=== PATIENT | male | born 1940 | race Caucasian/White ===

== ENCOUNTER → 2016-09-10 | Outpatient (CLI) | payer MEDICARE ==
[~2016-09-10] MED LIST: ASPIRIN CHEWABL81 MG PO; DILTIAZEM 24HR180 M1 PO; FLOMAX0.4 MG PO; HYDRALAZINE HCL50 MG PO; LASIX80 MG PO; METOLAZONE5 MG PO; NORCO 5-325 TA1 EACH PO; PHENERGAN 25 MG25 M1 PO; TRADJENTA5 MG PO
== END ==
LOC: OPSV2 12:37
PROVIDERS: Anesthesiology
DX: Z01.812 Encounter for preprocedural laboratory examination (principal); N18.9 Chronic kidney disease, unspecified
CPT/HCPCS: 36415; 80048

== ENCOUNTER → 2016-09-14 | Day surgery (SDC) | payer MEDICARE | END | disposition home or self-care (01) | LOC: OR 07:27 | PROVIDERS: Surgery | PROC: B514YZA Fluoroscopy of Left Jugular Veins using Other Contrast, Guidance (ICD-10-PCS; 2016-09-14) | PROC: 05HN33Z Insertion of Infusion Device into Left Internal Jugular Vein, Percutaneous Approach (ICD-10-PCS; principal; 2016-09-14 09:45) | DX: I13.0 Hypertensive heart and chronic kidney disease with heart failure and stage 1 through stage 4 chronic kidney disease, or unspecified chronic kidney disease (principal); N18.9 Chronic kidney disease, unspecified; E11.22 Type 2 diabetes mellitus with diabetic chronic kidney disease; I50.9 Heart failure, unspecified; D64.9 Anemia, unspecified; M10.9 Gout, unspecified; Z88.0 Allergy status to penicillin; Z91.040 Latex allergy status; Z79.82 Long term (current) use of aspirin; Z79.899 Other long term (current) drug therapy; Z87.891 Personal history of nicotine dependence | CPT/HCPCS: 71010; 77001; 82962; C1752; C1769; J0690; J1956; J2250; J2405; J3370; J7030; J7120 ==

== ENCOUNTER 2016-09-16 05:20 | Inpatient (IN) | payer MEDICARE ==
[~2016-09-16] VITALS: Ht 167.6 cm; Wt 98.9 kg
[2016-09-16 10:38] LABS: HEMOGLOBIN 8.3 gm/dl (14.0-17.5); RED BLOOD COUNT 2.9 M/UL (4.20-5.50); WHITE BLOOD COUNT 25.2 K/UL (4.5-11.0)
[2016-09-17 03:50] LABS: HEMOGLOBIN 7.1 gm/dl (14.0-17.5)
[2016-09-17 03:51] LABS: RED BLOOD COUNT 2.52 M/UL (4.20-5.50); WHITE BLOOD COUNT 17.8 K/UL (4.5-11.0)
[2016-09-17 09:22] LABS: HEMOGLOBIN 7.3 gm/dl (14.0-17.5)
[2016-09-17 21:43] LABS: HEMOGLOBIN 7.4 gm/dl (14.0-17.5)
[2016-09-18 03:51] LABS: HEMOGLOBIN 7.3 gm/dl (14.0-17.5); RED BLOOD COUNT 2.56 M/UL (4.20-5.50); WHITE BLOOD COUNT 16.2 K/UL (4.5-11.0)
[2016-09-18 09:30] LABS: HEMOGLOBIN 7.4 gm/dl (14.0-17.5)
[2016-09-19 04:33] LABS: HEMOGLOBIN 8.1 gm/dl (14.0-17.5); RED BLOOD COUNT 2.88 M/UL (4.20-5.50)
[2016-09-19 09:15] LABS: HEMOGLOBIN 7.5 gm/dl (14.0-17.5)
[2016-09-19 21:14] LABS: HEMOGLOBIN 7.4 gm/dl (14.0-17.5)
[2016-09-20 03:57] LABS: HEMOGLOBIN 7.5 gm/dl (14.0-17.5); RED BLOOD COUNT 2.7 M/UL (4.20-5.50); WHITE BLOOD COUNT 16.6 K/UL (4.5-11.0)
[2016-09-21 03:32] LABS: HEMOGLOBIN 7.4 gm/dl (14.0-17.5); RED BLOOD COUNT 2.55 M/UL (4.20-5.50); WHITE BLOOD COUNT 15.4 K/UL (4.5-11.0)
[2016-09-22 05:06] LABS: HEMOGLOBIN 7.1 gm/dl (14.0-17.5); RED BLOOD COUNT 2.45 M/UL (4.20-5.50); WHITE BLOOD COUNT 16.3 K/UL (4.5-11.0)
== END 2016-09-23 08:55 | disposition expired | DRG 870 ==
LOC: CCU 05:20
PROVIDERS: Internal Medicine; Internal Medicine Nephrology; ADMIT Internal Medicine
PROC: 5A1955Z Respiratory Ventilation, Greater than 96 Consecutive Hours (ICD-10-PCS; principal; 2016-09-16)
PROC: 4A10X4Z Monitoring of Central Nervous Electrical Activity, External Approach (ICD-10-PCS; 2016-09-20)
PROC: 4A10X4Z Monitoring of Central Nervous Electrical Activity, External Approach (ICD-10-PCS; 2016-09-22)
DX: A41.9 Sepsis, unspecified organism (principal); R65.21 Severe sepsis with septic shock; N18.6 End stage renal disease; G93.1 Anoxic brain damage, not elsewhere classified; I42.9 Cardiomyopathy, unspecified; R18.8 Other ascites; I13.2 Hypertensive heart and chronic kidney disease with heart failure and with stage 5 chronic kidney disease, or end stage renal disease; I50.32 Chronic diastolic (congestive) heart failure; E87.4 Mixed disorder of acid-base balance; N17.9 Acute kidney failure, unspecified; I31.3 Pericardial effusion (noninflammatory); E46 Unspecified protein-calorie malnutrition; I48.91 Unspecified atrial fibrillation; Z99.2 Dependence on renal dialysis; K74.69 Other cirrhosis of liver; F03.90 Unspecified dementia, unspecified severity, without behavioral disturbance, psychotic disturbance, mood disturbance, and anxiety; N40.0 Benign prostatic hyperplasia without lower urinary tract symptoms; Z88.0 Allergy status to penicillin; Z91.040 Latex allergy status; Z79.82 Long term (current) use of aspirin; Z87.891 Personal history of nicotine dependence; Z82.3 Family history of stroke; Z82.49 Family history of ischemic heart disease and other diseases of the circulatory system; Z66 Do not resuscitate; E11.21 Type 2 diabetes mellitus with diabetic nephropathy; E78.5 Hyperlipidemia, unspecified; E11.22 Type 2 diabetes mellitus with diabetic chronic kidney disease; J44.9 Chronic obstructive pulmonary disease, unspecified; G25.3 Myoclonus; Z79.4 Long term (current) use of insulin; Z51.5 Encounter for palliative care; D63.1 Anemia in chronic kidney disease; R40.2440 Other coma, without documented Glasgow coma scale score, or with partial score reported, unspecified time; Z68.36 Body mass index [BMI] 36.0-36.9, adult
CPT/HCPCS: ECHO; 36415; 36430; 36600; 70450; 71010; 80053; 80202; 81001; 82150; 82550; 82553; 82607; 82728; 82746; 82803; 82962; 83036; 83540; 83550; 83605; 83690; 83735; 84100; 84443; 84484; 85014; 85018; 85025; 85027; 85610; 86140; 86850; 86900; 86901; 86920; 87040; 87070; 87081; 87086; 87205; 87278; 90935; 90937; 93005; 93306; 94002; 94003; 94640; 94664; 95824; A4628; C9113; J1265; J1644; J1650; J1953; J2060; J2185; J2270; J3370; J7030; J7040; J7050; J7070; P9016; P9047